=== PATIENT | female | born 1980 | race Caucasian/White ===

== ENCOUNTER 2018-08-16 16:33 | Emergency (ER) | payer OTHER ==
[2018-08-16 16:51] VITALS: BP 125/74; PULSE 95; TEMP 98.2; BMI 30.2
--- NOTE | 2018-08-16 16:51 | PDOC ---
Rapid Medical Evaluation Chief Complaint: Pain, Acute Time Seen by Provider: 08/16/18 16:50 Medical Evaluation: Allergies Allergy/AdvReac Type Severity Reaction Status Date / Time Penicillins Allergy Verified 06/07/16 22:17 08/16/18 16:50 I have performed a brief in-person evaluation of this patient. The patient presents with a chief complaint of: occipital tightness and upper neck pain for 1 day. Pertinent physical exam findings: normal vital signs The patient will proceed to the ED for further evaluation. Discharge Disposition - Diagnosis Neck pain - Referrals - Patient Instructions - Post Discharge Activity
[2018-08-16] MEDS ORDERED: CYCLOBENZAPRINE HCL 10 MG TABLET (FP) PO ONE (17:33)
[2018-08-16] MEDS ORDERED: CYCLOBENZAPRINE HCL 10 MG TABLET (FP) ONE (17:35)
--- NOTE | 2018-08-16 18:06 | PDOC ---
History of Present Illness - General Chief Complaint: Pain, Acute Stated Complaint: NECK PAIN Time Seen by Provider: 08/16/18 16:50 History Source: Patient Exam Limitations: No Limitations Past History - Past Medical History Allergies/Adverse Reactions: Allergies Allergy/AdvReac Type Severity Reaction Status Date / Time Penicillins Allergy Verified 06/07/16 22:17 Home Medications: Ambulatory Orders Cyclobenzaprine HCl [Flexeril -] 10 mg PO TID PRN #21 tablet 08/16/18 COPD: No - Surgical History Abdominal Surgery: Yes - Reproductive History (#): 3 Para: 2 - Immunization History Immunization Up to Date: Yes - Suicide/Smoking/Psychosocial Hx Smoking Status: No Smoking History: Never smoked Number of Cigarettes Smoked Daily: 0 Hx Alcohol Use: No Drug/Substance Use Hx: No Substance Use Type: None *Physical Exam - Vital Signs Last Vital Signs Temp Pulse Resp BP Pulse Ox 98.2 F 95 H 16 125/74 98 08/16/18 16:48 08/16/18 16:48 08/16/18 16:48 08/16/18 16:48 08/16/18 16:48 - Physical Exam Neck: positive: Tender lateral (+mild TTP along R traps; slight pain with rotating neck (mainly to left)). negative: Decreased range of motion, Rigidity , Tender midline Respiratory/Chest: positive: Lungs Clear, Normal Breath Sounds. negative: Respiratory Distress Cardiovascular: positive: Regular Rhythm, Regular Rate, S1, S2. 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, Fully Oriented, Alert, Normal Mood/ Affect, Normal Response, Motor Strength 5/5 Moderate Sedation - Procedure Monitoring Vital Signs: Procedure Monitoring Vital Signs Temperature 98.2 F 08/16/18 16:48 Pulse Rate 95 H 08/16/18 16:48 Respiratory Rate 16 08/16/18 16:48 Blood Pressure 125/74 08/16/18 16:48 O2 Sat by Pulse Oximetry (%) 98 08/16/18 16:48 ED Treatment Course - Medications Given in the ED: ED Medications Discontinued Medications Generic Name Dose Route Start Last Admin Trade Name Freq PRN Reason Stop Dose Admin Cyclobenzaprine HCl 10 mg 08/16/18 17:33 08/16/18 17:37 Flexeril - PO 08/16/18 17:34 10 mg ONCE ONE Administration Medical Decision Making - Medical Decision Making 37 y/o F with no sig pmh presents with R sided neck pain from yesterday. 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 Took Motrin with slight relief in pain. Denies trauma, sob, cp, n/v, numbness/tingling/weakness of extremities Likely muscle strain Given Flexeril Stable for d/c 08/16/18 18:04 *DC/Admit/Observation/Transfer Diagnosis at time of Disposition: Neck muscle strain Qualifiers: Encounter type: initial encounter Qualified Code(s): S16.1XXA - Strain of muscle, fascia and tendon at neck level, initial encounter - Discharge Dispostion Disposition: HOME Condition at time of disposition: Stable Decision to Admit order: No - Prescriptions Prescriptions: Cyclobenzaprine HCl [Flexeril -] 10 mg PO TID PRN #21 tablet PRN Reason: Muscle Spasms - Referrals Referrals: Nolvia Langston MD [Primary Care Provider] - 3 days - Patient Instructions Printed Discharge Instructions: DI for Cervical Muscle Strain Additional Instructions: Thank you for choosing [facility]. It was a pleasure taking care of you. You may take Motrin 600 mg every 4 hours by mouth as needed for mild to moderate pain. Take Motrin with food. You were also prescribed Flexeril to take as needed for muscle spasms. This medication can also make you drowsy so please be cautious with driving or performing heavy physical work. Apply warm compresses along site to help with pain. Return to the Emergency Department if your symptoms worsen or persist or have other concerning symptoms. - Post Discharge Activity
== END 2018-08-16 18:23 | disposition home or self-care (01) ==
LOC: JERFT 16:33
DX: S16.1XXA Strain of muscle, fascia and tendon at neck level, initial encounter (principal); X50.9XXA Other and unspecified overexertion or strenuous movements or postures, initial encounter; Y93.E9 Activity, other interior property and clothing maintenance; Y92.89 Other specified places as the place of occurrence of the external cause; Y99.0 Civilian activity done for income or pay
CPT/HCPCS: 99281-25

== ENCOUNTER 2018-09-10 00:15 | Emergency (ER) | payer OTHER ==
[2018-09-10 01:39] VITALS: BP 132/89; PULSE 80; TEMP 98.2; BMI 29.2
[2018-09-10] MEDS ORDERED: IBUPROFEN 400 MG TABLET (FP) PO ONE ×2 (02:57→03:02)
[2018-09-10] MEDS ORDERED: CLINDAMYCIN HCL 150 MG CAPSULE (FP) PO ONE (03:27)
--- NOTE | 2018-09-10 03:37 | PDOC ---
History of Present Illness - General Chief Complaint: Pain, Acute Stated Complaint: PAIN,FOOT Time Seen by Provider: 09/10/18 02:43 History Source: Patient Exam Limitations: No Limitations Past History - Past Medical History Allergies/Adverse Reactions: Allergies Allergy/AdvReac Type Severity Reaction Status Date / Time Penicillins Allergy Verified 09/10/18 01:37 Home Medications: Ambulatory Orders Cyclobenzaprine HCl [Flexeril -] 10 mg PO TID PRN #21 tablet 08/16/18 Clindamycin [Cleocin -] 300 mg PO Q6HPO #28 capsule 09/10/18 COPD: No - Surgical History Abdominal Surgery: Yes - Reproductive History (#): 3 Para: 2 - Immunization History Immunization Up to Date: Yes - Suicide/Smoking/Psychosocial Hx Smoking Status: No Smoking History: Never smoked Have you smoked in the past 12 months: No Number of Cigarettes Smoked Daily: 0 Information on smoking cessation initiated: No Hx Alcohol Use: No Drug/Substance Use Hx: No Substance Use Type: None *Physical Exam - Vital Signs Last Vital Signs Temp Pulse Resp BP Pulse Ox 98.2 F 80 20 132/89 99 09/10/18 01:38 09/10/18 01:38 09/10/18 01:38 09/10/18 01:38 09/10/18 01:38 - Physical Exam General Appearance: No: Apparent Distress Extremity: positive: Other (Appears as infected L ingrown toenail of 1st toe, scant yellowish liquid on palpation of site, no erythema, no warmth, no fluctuance, no streaking, no deformity of extremities) Neurologic: positive: Alert, Normal Mood/Affect Moderate Sedation - Procedure Monitoring Vital Signs: Procedure Monitoring Vital Signs Temperature 98.2 F 09/10/18 01:38 Pulse Rate 80 09/10/18 01:38 Respiratory Rate 20 09/10/18 01:38 Blood Pressure 132/89 09/10/18 01:38 O2 Sat by Pulse Oximetry (%) 99 09/10/18 01:38 ED Treatment Course - LABORATORY CBC & Chemistry Diagram: 09/10/18 03:43 - Medications Given in the ED: ED Medications Discontinued Medications Generic Name Dose Route Start Last Admin Trade Name Freq PRN Reason Stop Dose Admin Ibuprofen 800 mg 09/10/18 02:57 09/10/18 03:04 Motrin - PO 09/10/18 02:58 800 mg ONCE ONE Administration Medical Decision Making - Medical Decision Making 37 y/o F with no sig pmh presents with L 1st toe pain x 1 week. Mentions she was cutting her toenail and cut her nail too deep. Mentions subjective fever yesterday. Denies trauma to toe. Denies redness, streaking. Appears as infected L ingrown toenail Case d/w Dr. Ahumada - recommends labs, L foot xray Will start on Clindamycin given allergy to penicillin 09/10/18 03:37 Mild leukocytosis of 11.1, mild CRP elevation to 0.7; ESR pending Will D/C patient on Clindamycin and refer to podiatry 09/10/18 05:22 *DC/Admit/Observation/Transfer Diagnosis at time of Disposition: Ingrown toenail of left foot with infection - Discharge Dispostion Disposition: HOME Condition at time of disposition: Stable Decision to Admit order: No - Prescriptions Prescriptions: Clindamycin [Cleocin -] 300 mg PO Q6HPO #28 capsule - Referrals Referrals: Nolvia Langston MD [Primary Care Provider] - 3 days Estefania Morrison MD [Staff Physician] - Call tomorrow - Patient Instructions Printed Discharge Instructions: DI for Ingrown Toenail Additional Instructions: Thank you for choosing [facility]. It was a pleasure taking care of you. Likely you have infected ingrown toenail, for which you were started on antibiotics You may take Motrin 600 mg every 6 hours by mouth as needed for mild to moderate pain. Take Motrin with food. Please follow-up with corporate associate attorney as well. Return to the Emergency Department if your symptoms worsen or persist, you have fever, increased redness, swelling, more purulent drainage, streaking or other concerning symptoms. Clement por elegir el [facility]. Fue un placer cuidar de ti. Es probable que haya infectado la ua encarnada, por lo que comenz con antibiticos Puede lula Motrin 600 mg cada 6 horas por va oral segn sea necesario para el dolor leve a moderado. [place] Motrin con la comida. Por favor ranjan un seguimiento con el podlogo tambin. Regrese al Departamento [facility]gencias si ann sntomas empeoran o persisten, tiene fiebre, enrojecimiento, hinchazn, drenaje ms purulento, estras u otros sntomas relacionados. Print Language: SLOVAK - Post Discharge Activity Forms/Work/School Notes: Back to Work
[2018-09-10] MEDS ORDERED: CLINDAMYCIN HCL 150 MG CAPSULE (FP) ONE (03:47)
[2018-09-10 04:13] LABS: EOS % 2.3 % (0-4.5); LYMPH % 38.8 % (8-40); MCH 32.2 pg (25.7-33.7); MCHC 34.1 g/dl (32.0-36.0); MEAN CELL VOLUME 94.4 fl (80-96); MEAN PLT VOLUME 7.8 fl (7.5-11.1); MONO % 9.3 % (3.8-10.2); NEUT % 48.6 % (42.8-82.8); PLATELET COUNT 347 K/MM3 (134-434); RBC 4.02 M/mm3 (3.60-5.2); RDW 13.2 % (11.6-15.6); WHITE BLOOD COUNT 11.1 K/mm3 (4.0-10.0)
== END 2018-09-10 05:29 | disposition home or self-care (01) ==
LOC: JER 00:15
DX: L60.0 Ingrowing nail (principal)
CPT/HCPCS: 36415; 73660-TC-LT-FY; 85025; 85651; 86140; 99281-25

== ENCOUNTER 2019-01-06 21:45 | Emergency (ER) | payer OTHER ==
--- NOTE | 2019-01-06 21:47 | PDOC ---
Rapid Medical Evaluation Medical Evaluation: Allergies Allergy/AdvReac Type Severity Reaction Status Date / Time Penicillins Allergy Verified 09/10/18 01:37 01/06/19 21:47 I have performed a brief in-person evaluation of this patient. The patient presents with a chief complaint of:R lower chest pain s/p fall tonight Pertinent physical exam findings:Poorly localized ttp to R lower chest, no crepitus or step offs, abd benign I have ordered the following:rib series/upeg The patient will proceed to the ED for further evaluation. Discharge Disposition - Diagnosis Chest injury Qualifiers: Encounter type: initial encounter Qualified Code(s): S29.9XXA - Unspecified injury of thorax, initial encounter - Referrals - Patient Instructions - Post Discharge Activity
[2019-01-06 21:57] VITALS: BP 130/87; PULSE 86; TEMP 98.3; BMI 33.2
[2019-01-06] MEDS ORDERED: IBUPROFEN 400 MG TABLET (FP) PO ONE ×2 (22:42→22:48)
[2019-01-07] MEDS ORDERED: LIDOCAINE 5% TOPICAL PATCH TP ONE (00:03)
--- NOTE | 2019-01-07 00:28 | PDOC ---
History of Present Illness - General Chief Complaint: Injury Stated Complaint: FALL/ABD PAIN Time Seen by Provider: 01/06/19 21:55 History Source: Patient Exam Limitations: No Limitations Past History - Past Medical History Allergies/Adverse Reactions: Allergies Allergy/AdvReac Type Severity Reaction Status Date / Time Penicillins Allergy Verified 01/06/19 21:57 Home Medications: Ambulatory Orders Cyclobenzaprine HCl [Flexeril -] 10 mg PO TID PRN #21 tablet 08/16/18 Lidocaine 5% Patch [Lidoderm -] 1 patch TP DAILY #7 patch 01/07/19 COPD: No - Surgical History Abdominal Surgery: Yes - Reproductive History (#): 3 Para: 2 - Immunization History Immunization Up to Date: Yes - Suicide/Smoking/Psychosocial Hx Smoking Status: No Smoking History: Never smoked Have you smoked in the past 12 months: No Number of Cigarettes Smoked Daily: 0 Hx Alcohol Use: No Drug/Substance Use Hx: No Substance Use Type: None *Physical Exam - Vital Signs Last Vital Signs Temp Pulse Resp BP Pulse Ox 98.3 F 86 18 130/87 99 01/06/19 21:54 01/06/19 21:54 01/06/19 21:54 01/06/19 21:54 01/06/19 21:54 - Physical Exam General Appearance: No: Apparent Distress Respiratory/Chest: positive: Chest Tender (mild TTP along R anterior chest wall , midaxillary line, no ecchymosis or bruising, no palpable step-off), Lungs Clear, Normal Breath Sounds. negative: Respiratory Distress Cardiovascular: positive: Regular Rhythm, Regular Rate, S1, S2. negative: Murmur Integumentary: positive: Normal Color Neurologic: positive: Alert, Normal Mood/Affect ED Treatment Course - ADDITIONAL ORDERS Additional order review: Laboratory Results 01/06/19 22:13 Urine HCG, Qual Negative - Medications Given in the ED: ED Medications Discontinued Medications Generic Name Dose Route Start Last Admin Trade Name Freq PRN Reason Stop Dose Admin Ibuprofen 800 mg 01/06/19 22:42 01/06/19 22:50 Motrin - PO 01/06/19 22:43 800 mg ONCE ONE Administration Medical Decision Making - Medical Decision Making 38 y/o F with no sig pmh presents with anterior rib pain after slipping in the bathroom, falling forward. Denies LOC, head strike, headache/neck pain, cp, abd pain, n/v. Rib series - no fracture noted, no PTX noted Given Motrin and Lido patch Stable for dc 01/07/19 00:24 *DC/Admit/Observation/Transfer Diagnosis at time of Disposition: Chest injury Qualifiers: Encounter type: initial encounter Qualified Code(s): S29.9XXA - Unspecified injury of thorax, initial encounter - Discharge Dispostion Disposition: HOME Condition at time of disposition: Stable Decision to Admit order: No - Prescriptions Prescriptions: Lidocaine 5% Patch [Lidoderm -] 1 patch TP DAILY #7 patch - Referrals Referrals: Nolvia Langston MD [Primary Care Provider] - 2 Days - Patient Instructions Printed Discharge Instructions: DI for Rib Contusion Additional Instructions: Thank you for choosing [facility]. It was a pleasure taking care of you. You may take Motrin 600 mg every 6 hours by mouth as needed for mild to moderate pain. Take Motrin with food. Apply lidocaine patch over site of pain. Remove after 12 hours Apply warm compresses over site of pain Follow-up with your doctor in 2 days Return to the Emergency Department if your symptoms worsen or persist or have other concerning symptoms - Post Discharge Activity
[2019-01-07] MEDS ORDERED: LIDOCAINE 5% TOPICAL PATCH ONE (00:29)
== END 2019-01-07 00:40 | disposition home or self-care (01) ==
LOC: JER 21:45
DX: S29.9XXA Unspecified injury of thorax, initial encounter (principal); W01.10XA Fall on same level from slipping, tripping and stumbling with subsequent striking against unspecified object, initial encounter; Y93.89 Activity, other specified; Y92.002 Bathroom of unspecified non-institutional (private) residence as the place of occurrence of the external cause
CPT/HCPCS: 71111-TC-FY; 84703; 99282-25

== ENCOUNTER 2019-05-22 21:23 | Emergency (ER) | payer OTHER ==
[2019-05-22 21:37] VITALS: BP 127/84; PULSE 83; TEMP 98.3; BMI 32.5
[2019-05-22] MEDS ORDERED: diphenhydrAMINE HCL 25 MG CAPSULE (FP) PO ONE ×2 (21:50→21:54)
--- NOTE | 2019-05-22 21:51 | PDOC ---
History of Present Illness - General Chief Complaint: Allergic Reaction Stated Complaint: ALLERGY REACTION Time Seen by Provider: 05/22/19 21:45 - History of Present Illness Initial Comments: 05/22/19 21:48 2-year-old female presents for evaluation of redness on her face and anterior aspect of her chest after vomiting last night. No systemic symptoms now. Past History - Past Medical History Allergies/Adverse Reactions: Allergies Allergy/AdvReac Type Severity Reaction Status Date / Time Penicillins Allergy Verified 05/22/19 21:37 Home Medications: Ambulatory Orders Cyclobenzaprine HCl [Flexeril -] 10 mg PO TID PRN #21 tablet 08/16/18 Lidocaine 5% Patch [Lidoderm -] 1 patch TP DAILY #7 patch 01/07/19 COPD: No - Surgical History Abdominal Surgery: Yes - Reproductive History (#): 3 Para: 2 - Immunization History Immunization Up to Date: Yes - Psycho Social/Smoking Cessation Hx Smoking Status: No Smoking History: Never smoked Have you smoked in the past 12 months: No Number of Cigarettes Smoked Daily: 0 Information on smoking cessation initiated: No Hx Alcohol Use: No Drug/Substance Use Hx: No Substance Use Type: None Review of Systems - Review of Systems ABD/GI: Yes: Vomiting Integumentary: Yes: Rash *Physical Exam - Vital Signs Last Vital Signs Temp Pulse Resp BP Pulse Ox 98.3 F 83 18 127/84 100 05/22/19 21:35 05/22/19 21:35 05/22/19 21:35 05/22/19 21:35 05/22/19 21:35 - Physical Exam Comments: 05/22/19 21:49 GENERAL: The patient is awake, alert, and fully oriented, in no acute distress. HEAD: Normal with no signs of trauma. EYES: sclera anicteric, there is a right subconjunctival hemorrhage NECK: Normal range of motion EXTREMITIES: Normal range of motion, no edema. No clubbing or cyanosis. No cords, erythema, or tenderness. NEUROLOGICAL: Cranial nerves II through XII grossly intact. Normal speech, normal gait. PSYCH: Normal mood, normal affect. SKIN: Warm, Dry, normal turgor, mild petechial rash noted anterior aspect of chest and neck as well as cheeks Medical Decision Making - Medical Decision Making 05/22/19 21:49 2-year-old female with petechia after retching vomiting last night. She is feeling better now I will have her follow-up with her primary care physician. Discharge - Discharge Information Problems reviewed: Yes Clinical Impression/Diagnosis: Petechiae, Subconjunctival hemorrhage Condition: Stable Disposition: HOME - Admission No - Follow up/Referral Referrals: Nolvia Langston MD [Primary Care Provider] - - Patient Discharge Instructions Additional Instructions: This rash is due to broken vessels. You may take Benadryl for itching. Without fail follow-up with your primary care physician in 1 to 2 days for further evaluation and treatment options and return to the emergency room should symptoms worsen. - Post Discharge Activity
== END 2019-05-22 21:56 | disposition home or self-care (01) ==
LOC: JERFT 21:23
DX: R23.3 Spontaneous ecchymoses (principal); H11.31 Conjunctival hemorrhage, right eye; Z88.0 Allergy status to penicillin
CPT/HCPCS: 99282-25

== ENCOUNTER 2020-12-19 17:00 | Emergency (ER) | payer OTHER ==
[2020-12-19 17:16] VITALS: BP 113/76; PULSE 95; TEMP 98; BMI 34.2
[2020-12-19] MEDS ORDERED: IBUPROFEN 600 MG TABLET (FP) PO ONE ×2 (17:31→17:35)
== END 2020-12-19 18:20 | disposition home or self-care (01) ==
LOC: JERFT 17:00
DX: M25.561 Pain in right knee (principal)
CPT/HCPCS: 73562-TC-RT-FY; 73590-TC-RT-FY; 73610-TC-RT-FY; 73630-TC-RT-FY; 99284-25

== ENCOUNTER 2022-10-06 15:00 | Emergency (ER) | payer OTHER ==
[2022-10-06 15:24] VITALS: BP 141/87; PULSE 102; RESP 18; TEMP 98; BMI 32.0
[2022-10-06] MEDS ORDERED: KETOROLAC TROMETHAMINE 30 MG/1 ML VIAL IM ONE (16:47)
[2022-10-06] MEDS ORDERED: ACETAMINOPHEN 500 MG TABLET (FP) PO ONE (16:47)
[2022-10-06] MEDS ORDERED: CYCLOBENZAPRINE HCL 10 MG TABLET (FP) PO ONE (16:47)
[2022-10-06] MEDS ORDERED: LIDOCAINE 5% TOPICAL PATCH TP ONE (16:47)
[2022-10-06] MEDS ORDERED: CYCLOBENZAPRINE HCL 10 MG TABLET (FP) ONE (16:50)
[2022-10-06] MEDS ORDERED: ACETAMINOPHEN 500 MG TABLET (FP) ONE (16:50)
[2022-10-06] MEDS ORDERED: KETOROLAC TROMETHAMINE 30 MG/1 ML VIAL ONE (16:50)
[2022-10-06] MEDS ORDERED: LIDOCAINE 5% TOPICAL PATCH ONE (17:04)
[2022-10-06] MEDS ORDERED: IBUPROFEN 600 MG TABLET (FP) PO ONE ×2 (17:52→17:53)
[2022-10-06] MEDS ORDERED: LIDOCAINE PATCH REMOVAL MC SCH (22:00)
== END 2022-10-06 18:04 | disposition home or self-care (01) ==
LOC: JERFT 15:00
DX: M54.6 Pain in thoracic spine (principal)
CPT/HCPCS: 99283-25